=== PATIENT | male | born 1990 | race Caucasian/White ===

== ENCOUNTER 2017-10-16 05:10 | Observation (INO) | payer BC ==
[~2017-10-16] VITALS: Ht 180.3 cm; Wt 126.0 kg
[2017-10-16] VITALS (8 sets, daily range): BP systolic 103–131; BP diastolic 62–79; PULSE 55–75; TEMP 36.2–36.9; O2SAT 94–100; Ht 180.3 cm; Wt 126.0 kg
[2017-10-16] MEDS ORDERED: ONDANSETRON INJ 2 MG/ML 2 ML VIAL IV STA (05:28)
[2017-10-16] MEDS ORDERED: MoRPHine SULFATE 4 MG/ML 1 ML CARP\\VIAL IV ONE (05:30)
[2017-10-16 05:53] LABS: BASO % 0.3 %; BASO ABS # 0.02 K/uL (0-0.2); COMPLETE YES; EOS % 2.3 %; HEMATOCRIT 42.6 % (42-52); IG% 0.3 %; LYMPH % 33.4 %; LYMPH ABS # 2.65 K/uL (1.2-3.4); MEAN CELL VOLUME 87.3 fL (80-100); MEAN CORPUSCULAR HEMOGLOBIN 31.4 pg (25-34); MEAN CORPUSCULAR HGB CONC 35.9 g/dl (32-36); MEAN PLATELET VOLUME 8.8 fL (7.4-10.4); MONO % 7.4 %; NEUT % 56.3 %; PLATELET COUNT 222 K/uL (130-400); RED BLOOD COUNT 4.88 M/uL (4.7-6.1); WHITE BLOOD COUNT 7.93 K/uL (4.8-10.8)
[2017-10-16 06:10] LABS: BUN/CREATININE RATIO 15.3 (10-20); CALCIUM 9.2 mg/dl (8.5-10.1); POTASSIUM 3.6 mmol/L (3.5-5.1)
--- NOTE | 2017-10-16 06:45 | DIAGNOSTIC IMAGING REPORT ---
CT OF THE ABDOMEN AND PELVIS WITHOUT CONTRAST CLINICAL HISTORY: Right lower quadrant pain. COMPARISON STUDY: No previous studies for comparison. TECHNIQUE: Axial images of the abdomen and pelvis were obtained without IV contrast. Images were reviewed in the axial, sagittal, and coronal planes. A dose lowering technique was utilized adhering to the principles of ALARA. FINDINGS: No renal, ureteral or bladder calculi are present. Evaluation of the abdomen and pelvis is suboptimal on this unenhanced exam. The liver, spleen, adrenal glands and pancreas are normal. The appendix is mildly dilated, measuring 1 cm in caliber. There is mild periappendiceal infiltration and fluid. There is no free air or abscess. There is wall thickening of the appendix with submucosal fat deposition. Skeletal structures are unremarkable. There is no lymphadenopathy. IMPRESSION: Acute appendicitis. No free air or abscess. Electronically signed by: Jatinder Whiteside M.D. 10/16/2017 6:44 AM Dictated Date/Time: 10/16/2017 6:40 AM
[2017-10-16 07:01] LABS: URINE APPEARANCE CLEAR (CLEAR); URINE BILIRUBIN NEG (NEG); URINE COLOR YELLOW; URINE NITRITE NEG (NEG); URINE SPECIFIC GRAVITY 1.027 (1.000-1.030); UROBILINOGEN NEG (NEG); ZZUR CULT IF INDIC CLEAN CATCH NO
[2017-10-16 07:05] LABS: MANUAL MICROSCOPIC REQUIRED? NO; REVIEW REQ? NO
--- NOTE | 2017-10-16 08:04 | History and Physical ---
History & Physical Date & Time of Service: Oct 16, 2017 at 07:53 Chief Complaint: Right Side Pain Primary Care Physician: No Doctor, Assigned History of Present Illness Source: patient Jesus is a pleasant 27 year-old who presented to emergency department early this morning with complaint of abdominal pain that began two days ago. States the pain was generalized in the abdomen and has now radiated to the right lower side. Has never had pain like this before. Had associated diarrhea but no fever, chills, sweats, nausea, vomiting, chest pain, shortness of breath, difficulty breathing, constipation, blood in stools, difficulty urinating, or blood in urine. Has never had abdominal surgery before. Surgical history includes tonsillectomy, adenoidectomy, and wisdom teeth extraction. Denies of any significant medical history. CT scan of the abdomen and pelvis without contrast showed dilated appendix at 1 cm with periappendiceal inflammation no signs of free air or abscess formation. Labs showed no leukocytosis and vital signs stable. Past Medical/Surgical History Past Medical History: No significant past medical history Past Surgical History: 1. [place] teeth extraction 2. Tonsillectomy 3. 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) Allergies Coded Allergies: No Known Allergies (Unverified , 10/16/17) Home Medications No Active Prescriptions or Reported Meds Review of Systems Constitutional: No fever, No chills, No sweats Respiratory: No shortness of breath, No dyspnea on exertion Cardiovascular: No chest pain Abdomen: + pain, + diarrhea, No nausea, No vomiting, No constipation, No GI bleeding Genitourinary - Male: No hematuria, No dysuria, No urinary frequency, No urinary urgency Endocrine: No fatigue Hematologic / Lymphatic: No abnormal bleeding/bruising Integumentary: No rash Physical Exam Vital Signs Date Time Temp Pulse Resp B/P (MAP) Pulse Ox O2 Delivery O2 Flow Rate FiO2 10/16/17 06:53 75 18 120/74 98 Room Air 10/16/17 06:07 62 15 108/61 98 Room Air 10/16/17 05:13 36.6 70 20 129/73 97 Room Air General Appearance: WD/WN, no apparent distress Head: normocephalic, atraumatic Eyes: sclerae normal ENT: hearing grossly normal Neck: trachea midline Respiratory/Chest: lungs clear, normal breath sounds, no respiratory distress, no accessory muscle use Cardiovascular: regular rate, rhythm, no murmur Abdomen/GI: soft, no organomegaly, no pulsatile mass, + tenderness (RLQ on deep palpation, positive McBurneys point, no peritonitis or rigidity) Back: normal inspection Extremities/Musculoskelatal: normal inspection, no pedal edema Neurologic/Psych: alert, normal mood/affect, oriented x 3 Skin: normal color, warm/dry, no rash Diagnostics Laboratory Results Results Past 24 Hours Test 10/16/17 05:35 10/16/17 05:42 Range/Units White Blood Count 7.93 4.8-10.8 K/uL Red Blood Count 4.88 4.7-6.1 M/uL Hemoglobin 15.3 14.0-18.0 g/dL Hematocrit 42.6 42-52 % Mean Corpuscular Volume 87.3 80-100 fL Mean Corpuscular Hemoglobin 31.4 25-34 pg Mean Corpuscular Hemoglobin Concent 35.9 32-36 g/dl Platelet Count 222 130-400 K/uL Mean Platelet Volume 8.8 7.4-10.4 fL Neutrophils (%) (Auto) 56.3 % Lymphocytes (%) (Auto) 33.4 % Monocytes (%) (Auto) 7.4 % Eosinophils (%) (Auto) 2.3 % Basophils (%) (Auto) 0.3 % Neutrophils # (Auto) 4.47 1.4-6.5 K/uL Lymphocytes # (Auto) 2.65 1.2-3.4 K/uL Monocytes # (Auto) 0.59 0.11-0.59 K/uL Eosinophils # (Auto) 0.18 0-0.5 K/uL Basophils # (Auto) 0.02 0-0.2 K/uL RDW Standard Deviation 41.3 36.4-46.3 fL RDW Coefficient of Variation 12.9 11.5-14.5 % Immature Granulocyte % (Auto) 0.3 % Immature Granulocyte # (Auto) 0.02 0.00-0.02 K/uL Sodium Level 136 136-145 mmol/L Potassium Level 3.6 3.5-5.1 mmol/L Chloride Level 104 98-107 mmol/L Carbon Dioxide Level 26 21-32 mmol/L Anion Gap 6.0 3-11 mmol/L Blood Urea Nitrogen 15 7-18 mg/dl Creatinine 1.00 0.60-1.40 mg/dl Est Creatinine Clear Calc Drug Dose 148.6 ml/min Estimated GFR () 118.2 Estimated GFR (Non- 102.0 BUN/Creatinine Ratio 15.3 10-20 Random Glucose 96 70-99 mg/dl Calcium Level 9.2 8.5-10.1 mg/dl Total Bilirubin 0.6 0.2-1 mg/dl Aspartate Amino Transf (AST/SGOT) 12 15-37 U/L Alanine Aminotransferase (ALT/SGPT) 27 12-78 U/L Alkaline Phosphatase 66 45-117 U/L Total Protein 7.6 6.4-8.2 gm/dl Albumin 3.8 3.4-5.0 gm/dl Globulin 3.8 2.5-4.0 gm/dl Albumin/Globulin Ratio 1.0 0.9-2 Lipase 133 73-393 U/L Urine Color YELLOW Urine Appearance CLEAR CLEAR Urine pH 5.0 4.5-7.5 Urine Specific [place] 1.027 1.000-1.030 Urine Protein NEG NEG Urine Glucose (UA) NEG NEG Urine Ketones NEG NEG Urine Occult Blood NEG NEG Urine Nitrite NEG NEG Urine Bilirubin NEG NEG Urine Urobilinogen NEG NEG Urine Leukocyte Esterase NEG NEG Diagnostic Radiology CT OF THE ABDOMEN AND PELVIS WITHOUT CONTRAST CLINICAL HISTORY: Right lower quadrant pain. COMPARISON STUDY: No previous studies for comparison. TECHNIQUE: Axial images of the abdomen and pelvis were obtained without IV contrast. Images were reviewed in the axial, sagittal, and coronal planes. A dose lowering technique was utilized adhering to the principles of ALARA. FINDINGS: No renal, ureteral or bladder calculi are present. Evaluation of the abdomen and pelvis is suboptimal on this unenhanced exam. The liver, spleen, adrenal glands and pancreas are normal. The appendix is mildly dilated, measuring 1 cm in caliber. There is mild periappendiceal infiltration and fluid. There is no free air or abscess. There is wall thickening of the appendix with submucosal fat deposition. Skeletal structures are unremarkable. There is no lymphadenopathy. IMPRESSION: Acute appendicitis. No free air or abscess. Impression Assessment and Plan 27 year-old male who presented to emergency room with 2 day history of abdominal pain and diarrhea. CT scan showing acute appendicitis with dilated appendix measuring 1 cm and periappendiceal inflammation. No leukocytosis and vital signs stable. Examination is positive for RLQ tenderness on deep palpation with positive McBurney's point. No peritonitis or rigidity. Plan: Plan to take patient to operating room for laparoscopic appendectomy possible open. Discussed with patient and his the procedure and risks and informed consent will be obtained by Dr. Castañeda. Continue IV fluids and pain management prior to operating room Will receive 2 gms Cefoxitin for preop antibiotics Will be transferred to Med/Surg post operatively Dr. Castañeda has seen and examined patient, agrees with above findings and treatment plan.
[2017-10-16] MEDS ORDERED: SODIUM CHLORIDE 0.9% 1000ML 1,000 ML IV SCH (08:14)
[2017-10-16] MEDS ORDERED: ONDANSETRON INJ 2 MG/ML 2 ML VIAL IV PRN ×2 (08:15→12:30)
[2017-10-16] MEDS ORDERED: MoRPHine SULFATE 4 MG/ML 1 ML CARP\\VIAL IV PRN (08:15)
[2017-10-16] MEDS ORDERED: MoRPHine SULFATE 2 MG/ML CARP IV PRN ×2 (08:15)
[2017-10-16] MEDS ORDERED: EpHEDrine SULFATE INJ 50 MG/ML AMP ONE (10:21)
[2017-10-16] MEDS ORDERED: NEOSTIGMINE METHYLSULFATE 5 MG/5 ML SYR ONE (10:21)
[2017-10-16] MEDS ORDERED: LIDOCAINE HCL 2% 2 ML VIAL (20MG/ML) ONE (10:21)
[2017-10-16] MEDS ORDERED: GLYCOPYRROLATE INJ 0.2 MG/ML VIAL ONE (10:21)
[2017-10-16] MEDS ORDERED: PHENYLEPHRINE HCL INJ 10 MG/ML VIAL ONE (10:21)
[2017-10-16] MEDS ORDERED: DEXAMETHASONE SOD INJ 4 MG/ML VIAL ONE (10:21)
[2017-10-16] MEDS ORDERED: PROPOFOL IV EMULSION 10 MG/ML 20 ML VIAL IV ONE (10:21)
[2017-10-16] MEDS ORDERED: SUCCINYLCHOLINE CHLORIDE 20 MG/ML 10 ML VIAL IV ONE (10:21)
[2017-10-16] MEDS ORDERED: ONDANSETRON INJ 2 MG/ML 2 ML VIAL ONE (10:21)
[2017-10-16] MEDS ORDERED: BUPIVACAINE 0.5 % 5 MG/1 ML MPF 30ML VIAL ONE ×2 (10:22→10:59)
[2017-10-16] MEDS ORDERED: CEFAZOLIN SOD 1 GM VIAL ONE (10:23)
[2017-10-16] MEDS ORDERED: HEPARIN SOD (PORCINE) 1000 UNIT/ML 10 ML VIAL ONE (10:23)
[2017-10-16] MEDS ORDERED: MIDAZOLAM HCL 1 MG/ML 2ML VIAL ONE (10:24)
[2017-10-16] MEDS ORDERED: FENTANYL CITRATE INJ 50 MCG/1 ML 2 ML VIAL ONE ×2 (10:25→11:22)
[2017-10-16] MEDS ORDERED: IV FLUIDS COMPLETED PRN (10:45)
[2017-10-16] MEDS ORDERED: CEFAZOLIN SOD 2000MG/10 ML IV PUSH IV ONE (10:45)
[2017-10-16] MEDS ORDERED: NURSING VERBAL MED ORDER STA (10:46)
--- NOTE | 2017-10-16 11:59 | [facility] Post Operative Brief Note ---
Immediate Operative Summary Operative Date Oct 16, 2017. Pre-Operative Diagnosis Appendicitis Post-Operative Diagnosis Same Procedure(s) Performed Laparoscopic appendectomy Surgeon Walter Castañeda MD Saxophone Assembler Surgeon(s) Yarelis Hollingsworth PA-C Estimated Blood Loss 5 cc Findings See dictation Specimens Appendix Drains None Anesthesia General Complication(s) None Disposition Recovery Room / PACU
[2017-10-16] MEDS ORDERED: ATROPINE SULFATE 0.1 MG/ML 5ML SYR IV PRN (12:30)
[2017-10-16] MEDS ORDERED: LABETALOL HCL IV 5 MG/ML 20ML IV PRN (12:30)
[2017-10-16] MEDS ORDERED: EpHEDrine SULFATE INJ 50 MG/ML AMP IV PRN (12:30)
[2017-10-16] MEDS ORDERED: HYDROmorphone INJ 1 MG/ML SYR IV PRN (12:30)
[2017-10-16] MEDS ORDERED: PROMETHAZINE HCL INJ 12.5 MG in SODIUM CHLORIDE 0.9% 50ML 50 ML IV PRN (12:30)
[2017-10-16] MEDS ORDERED: HYDROmorphone INJ 1 MG/ML SYR ONE (12:32)
--- NOTE | 2017-10-16 13:08 | OPERATIVE REPORT ---
DATE OF OPERATION: 10/16/2017 PREOPERATIVE DIAGNOSIS: Acute appendicitis. POSTOPERATIVE DIAGNOSIS: Same. PROCEDURE: Laparoscopic appendectomy. SURGEON: Dr. Walter Castañeda. INSTALLATION MANAGER: Yarelis Joy PA-C FINDINGS: The distal two-thirds of the appendix was edematous, firm and hyperemic. The proximal one-third of the appendix including the base was normal. The cecum was normal, especially at the base of the appendix. The visible bowel appeared normal. There was no fluid seen in the abdomen. There was no evidence of perforation or abscess. TECHNIQUE: The patient was given a general anesthetic and the area was prepped and draped in the usual sterile fashion. Transverse incision was made below the umbilicus, carried down through the subcutaneous tissue to the fascia, which was grasped with 2 Magaly clamps and incised between. The peritoneum was identified, incised, and the introducer was placed bluntly. The abdomen was then insufflated to a pressure of 15 mmHg with carbon dioxide. A lower midline introducer was placed under direct vision through small skin incision. The patient was positioned in left side down in Trendelenburg. The appendix was easily identified extending off the inframedial side of the cecum and extending over towards the lateral abdominal wall. It was only very loosely attached there. The left lower quadrant introducer was then placed under direct vision through small skin incision. Traction was placed anteriorly on the cecum and the peritoneal attachments were divided using blunt and sharp dissection where appropriate until the appendix was completely elevated away from the floor and armando of the abdomen. I was then able to establish a plane between the mesoappendix and the appendix at the base and divided the mesoappendix with the Endo-LIA stapler. That allowed me then to confirm that I was identifying the base of the appendix at its attachment with the cecum. The appendix was then amputated using the Endo-LIA. The appendix was placed into an Endobag and brought out through the left lower quadrant introducer site. That introducer was replaced and the right lower quadrant was irrigated and irrigation was removed. There was a small amount of oozing from one of the dissection areas that was easily controlled with cautery. The right lower quadrant was further irrigated and irrigation removed. Any fluid that entered the right upper quadrant was removed. There was a small amount of irrigation in the pelvis that was removed. The staple lines were inspected again and there was no bleeding. The previous site of oozing was inspected and there was no bleeding. The gas was allowed to escape and the introducers were removed. The fascia of the umbilical introducer site was closed with interrupted 0 Vicryl and skin of all the incisions was closed with 4-0 Monocryl in either an interrupted or running subcuticular fashion. The skin was anesthetized with 0.5% Marcaine. The skin was cleansed, dried, benzoin placed, and Steri-Strips applied. Estimated blood loss was 5 mL. Sponge, needle and instrument counts were correct prior to closure. The patient tolerated the surgical procedure without complication and was transferred to recovery. I attest to the content of the Intraoperative Record and any orders documented therein. Any exception s are noted below.
--- NOTE | 2017-10-16 13:11 | Anesthesiology Progress Note ---
Anesthesia Post Op Note Date & Time Oct 16, 2017 at 13:10 Vital Signs Pain Intensity: 3 Vital Signs Past 12 Hours Date Time Temp Pulse Resp B/P (MAP) Pulse Ox O2 Delivery O2 Flow Rate FiO2 10/16/17 12:52 36.8 52 17 119/74 (89) 97 Oxymask 2 10/16/17 12:48 50 16 10/16/17 12:48 49 16 100 10/16/17 12:46 124/74 10/16/17 12:43 51 17 100 10/16/17 12:43 51 17 10/16/17 12:41 117/79 10/16/17 12:38 55 19 10/16/17 12:38 55 19 99 10/16/17 12:37 54 19 10/16/17 12:37 55 19 100 10/16/17 12:36 132/90 10/16/17 12:32 54 21 10/16/17 12:32 54 21 100 10/16/17 12:31 136/94 10/16/17 12:27 56 21 97 10/16/17 12:27 56 21 10/16/17 12:25 132/95 10/16/17 12:22 63 21 10/16/17 12:22 63 21 92 10/16/17 12:21 137/103 10/16/17 12:18 128/97 10/16/17 12:17 36.8 74 18 128/97 (114) 100 Oxymask 10 10/16/17 12:17 69 20 10/16/17 12:17 69 20 100 10/16/17 09:54 88 18 121/91 100 Nasal Cannula 10/16/17 08:48 63 18 124/78 99 Room Air 10/16/17 06:53 75 18 120/74 98 Room Air 10/16/17 06:07 62 15 108/61 98 Room Air 10/16/17 05:13 36.6 70 20 129/73 97 Room Air Notes Mental Status: alert / awake / arousable, participated in evaluation Pt Amnestic to Procedure: Yes Nausea / Vomiting: adequately controlled Pain: adequately controlled Airway Patency, RR, SpO2: stable & adequate BP & HR: stable & adequate Hydration State: stable & adequate Anesthetic Complications: no major complications apparent Pt doing well. VSS.
[2017-10-16] MEDS: OXYCODONE/ACETAMINOPHEN 5-325 TAB PO PRN ×2 (13:46→21:03)
[2017-10-16] MEDS: D5W AND 1/2NSS + 20MEQ KCL 1,000 ML IV SCH (15:35)
--- NOTE | 2017-10-16 15:51 | Discharge Instructions ---
Discharge Instructions Date of Service Oct 16, 2017. Admission Reason for Admission: Acute Appendicitis Discharge Discharge Diagnosis / Problem: same Discharge Goals Goal(s): Decrease discomfort, Improve function Activity Recommendations Activity Limitations: as noted below No heavy lifting over 20 pounds for 2 weeks No strenuous activity until cleared by surgeon No submerging incisions underwater for 2 weeks (no bathing, swimming, or hot tubs) No driving while taking narcotic pain medication or until you are pain free . Instructions / Follow-Up Instructions / Follow-Up You may shower in 24 hours, gently clean incision with soap and water and then pat dry Leave steri strips on incisions for 7 days and then remove You do not need to keep a dressing on incisions unless they are draining Walking and light activity is encouraged to prevent blood clots from forming You will be given narcotic pain medication as needed for pain. This medication may make you drowsy. Only take for moderate to severe pain. You may take extra strength Tylenol or Ibuprofen as needed for mild pain. If you are taking Percocet do not take Tylenol in between doses of Percocet as it already has Tylenol in it (substitute with Ibuprofen instead). Follow- up in surgical office in 2 weeks, please call [phone] to make an appointment Current Hospital Diet Patient's current hospital diet: Regular Diet Discharge Diet Recommended Diet: Regular Diet Procedures Procedures Performed: Laparoscopic appendectomy Pending Studies Studies pending at discharge: yes List of pending studies: appendix pathology will be reviewed at follow up visit Medical Emergencies . Who to Call and When: Medical Emergencies: If at any time you feel your situation is an emergency, please call 911 immediately. . Non-Emergent Contact Non-Emergency issues call your: Primary Care Provider, Surgeon Call Non-Emergent contact if: you have a fever, temperature is above 101, your pain is not controlled, your pain is worsening, your pain is unusual for you, wound has increased drainage, wound has increased redness, wound has increased pain . "Provider Documentation" section prepared by Yarelis Hollingsworth. . VTE Core Measure Inpt VTE Proph given/why not?: SCD's [place] Drug Monitoring Program Search Results: patient reviewed within database, no issues identified
[2017-10-16] MEDS ORDERED: OXYC-57 PO (15:52)
--- NOTE | 2017-10-16 23:06 | EMERGENCY ROOM VISIT NOTE ---
History First contact with patient: 05:19 Chief Complaint: FLANK PAIN Stated Complaint: ACUTE APPENDICITIS History of Present Illness The patient is a 27 year old male who presents to the Emergency Room with complaints of right side abdominal pain that is radiating into his right back. Patient states that he has slowly developed symptoms over the past 3 days. He has been eating, drinking, using the bathroom normal. No fever or chills. He does not have a history of abdominal surgery in the past. No change in diet or recent travel history. The patient considers himself usually healthy. His last meal was at 10 PM, roughly 7 hours ago. He rates his discomfort a dull 5/ 10. Review of Systems More than 10 systems were reviewed and otherwise negative with the exception of history of present illness. Past Medical/Surgical History Medical Problems: (1) Acute appendicitis Family History No pertinent family history Social History Smoking Status: Never Smoker Smokeless Tobacco Use: Yes Drug Use: none Marital Status: Occupation Status: employed Current/Historical Medications Scheduled PRN Oxycodone/Acetaminophen 5MG/325MG (Percocet 5MG/325MG), 1-2 TABLETS PO Q4H PRN for Pain Physical Exam Vital Signs Date Time Temp Pulse Resp B/P (MAP) Pulse Ox O2 Delivery O2 Flow Rate FiO2 10/16/17 06:53 75 18 120/74 98 Room Air 10/16/17 06:07 62 15 108/61 98 Room Air 10/16/17 05:13 36.6 70 20 129/73 97 Room Air Physical Exam VITALS: Vitals are noted on the nurse's note and reviewed by myself. Vital signs stable. GENERAL: Well-developed, well-nourished, white male, who is in no acute distress and resting comfortably. Patient is cooperative with the examination. HEAD: Normocephalic atraumatic. HEART: Regular rate and rhythm without murmurs gallops or rubs. LUNGS: Clear to auscultation bilaterally without wheezes, rales or rhonchi. No retractions or accessory muscle use. ABDOMEN: Positive normal bowel sounds x 4. Soft with right lower quadrant abdominal tenderness on palpation. No rebound or guarding. No CVA tenderness. MUSCULOSKELETAL: No muscle atrophy, erythema, or edema noted. Full range of motion without joint tenderness in all extremities. Medical Decision & Procedures ER Provider Diagnostic Interpretation: [~ rep ct add3]] CT OF THE ABDOMEN AND PELVIS WITHOUT CONTRAST CLINICAL HISTORY: Right lower quadrant pain. COMPARISON STUDY: No previous studies for comparison. TECHNIQUE: Axial images of the abdomen and pelvis were obtained without IV contrast. Images were reviewed in the axial, sagittal, and coronal planes. A dose lowering technique was utilized adhering to the principles of ALARA. FINDINGS: No renal, ureteral or bladder calculi are present. Evaluation of the abdomen and pelvis is suboptimal on this unenhanced exam. The liver, spleen, adrenal glands and pancreas are normal. The appendix is mildly dilated, measuring 1 cm in caliber. There is mild periappendiceal infiltration and fluid. There is no free air or abscess. There is wall thickening of the appendix with submucosal fat deposition. Skeletal structures are unremarkable. There is no lymphadenopathy. IMPRESSION: Acute appendicitis. No free air or abscess. Laboratory Results 10/16/17 05:35 Red Blood Count 4.88, Mean Corpuscular Volume 87.3, Mean Corpuscular Hemoglobin 31.4, Mean Corpuscular Hemoglobin Concent 35.9, Mean Platelet Volume 8.8, Neutrophils (%) (Auto) 56.3, Lymphocytes (%) (Auto) 33.4, Monocytes (%) (Auto) 7.4, Eosinophils (%) (Auto) 2.3, Basophils (%) (Auto) 0.3, Neutrophils # (Auto) 4.47, Lymphocytes # (Auto) 2.65, Monocytes # (Auto) 0.59, Eosinophils # (Auto) 0.18, Basophils # (Auto) 0.02 10/16/17 05:35 Test 10/16/17 05:35 10/16/17 05:42 White Blood Count 7.93 K/uL (4.8-10.8) Red Blood Count 4.88 M/uL (4.7-6.1) Hemoglobin 15.3 g/dL (14.0-18.0) Hematocrit 42.6 % (42-52) Mean Corpuscular Volume 87.3 fL (80-100) Mean Corpuscular Hemoglobin 31.4 pg (25-34) Mean Corpuscular Hemoglobin Concent 35.9 g/dl (32-36) Platelet Count 222 K/uL (130-400) Mean Platelet Volume 8.8 fL (7.4-10.4) Neutrophils (%) (Auto) 56.3 % Lymphocytes (%) (Auto) 33.4 % Monocytes (%) (Auto) 7.4 % Eosinophils (%) (Auto) 2.3 % Basophils (%) (Auto) 0.3 % Neutrophils # (Auto) 4.47 K/uL (1.4-6.5) Lymphocytes # (Auto) 2.65 K/uL (1.2-3.4) Monocytes # (Auto) 0.59 K/uL (0.11-0.59) Eosinophils # (Auto) 0.18 K/uL (0-0.5) Basophils # (Auto) 0.02 K/uL (0-0.2) RDW Standard Deviation 41.3 fL (36.4-46.3) RDW Coefficient of Variation 12.9 % (11.5-14.5) Immature Granulocyte % (Auto) 0.3 % Immature Granulocyte # (Auto) 0.02 K/uL (0.00-0.02) Anion Gap 6.0 mmol/L (3-11) Est Creatinine Clear Calc Drug Dose 148.6 ml/min Estimated GFR () 118.2 Estimated GFR (Non- 102.0 BUN/Creatinine Ratio 15.3 (10-20) Calcium Level 9.2 mg/dl (8.5-10.1) Total Bilirubin 0.6 mg/dl (0.2-1) Aspartate Amino Transf (AST/SGOT) 12 U/L (15-37) Alanine Aminotransferase (ALT/SGPT) 27 U/L (12-78) Alkaline Phosphatase 66 U/L (45-117) Total Protein 7.6 gm/dl (6.4-8.2) Albumin 3.8 gm/dl (3.4-5.0) Globulin 3.8 gm/dl (2.5-4.0) Albumin/Globulin Ratio 1.0 (0.9-2) Lipase 133 U/L (73-393) Urine Color YELLOW Urine Appearance CLEAR (CLEAR) Urine pH 5.0 (4.5-7.5) Urine Specific [place] 1.027 (1.000-1.030) Urine Protein NEG (NEG) Urine Glucose (UA) NEG (NEG) Urine Ketones NEG (NEG) Urine Occult Blood NEG (NEG) Urine Nitrite NEG (NEG) Urine Bilirubin NEG (NEG) Urine Urobilinogen NEG (NEG) Urine Leukocyte Esterase NEG (NEG) Medications Administered Medications (Trade) Dose Ordered Sig/Felicita Route Start Time Stop Time Status Last Admin Dose Admin Morphine Sulfate (MoRPHine SULFATE INJ) 4 mg NOW ONCE IV 10/16/17 05:30 10/16/17 05:32 DC 10/16/17 05:53 4 MG Ondansetron HCl (Zofran Inj) 4 mg NOW STAT IV 10/16/17 05:28 10/16/17 05:32 DC 10/16/17 05:53 4 MG ED Course Physical exam and history were performed. Nursing notes, EMR, and Medication List were personally reviewed. Patient appears to have right lower quadrant abdominal pain on exam. He has had symptoms for the past 2 days. IV access was established and labs were obtained. The patient was hydrated and medicated as above. CT scan of the abdomen and pelvis was performed. The patient does not have a significantly elevated white blood cell count, gross anemia, bandemia, or significant electrolyte imbalance. He did feel better after medication here in the department. His CT scan confirms acute appendicitis. I discussed the case with the on-call surgeon, who agreed to evaluate the patient here in the department. Please see their dictation for further patient course, plan, and disposition. The chart was completed utilizing [employer] Speech Voice Recognition Software. Grammatical errors, random word insertions, pronoun errors, and incomplete sentences are an occasional consequence of this system due to software limitations, ambient noise, and hardware issues. Any formal questions or concerns about the content, text, or information contained within the body of this dictation should be directly addressed to the provider for clarification. . Medical Decision Differential diagnosis: Etiologies such as appendicitis, diverticulitis, PUD, biliary pathology, UTI, pancreatitis, obstruction, mesenteric ischemia, aortic pathology, infections, inflammatory bowel disease, renal colic, as well as others were entertained. Impression Primary Impression: Acute appendicitis Departure Information Dispostion Admitted as an inpatient Condition GOOD Prescriptions Oxycodone/Acetaminophen 5MG/325MG (PERCOCET 5MG/325MG) Tab 1-2 TABLETS PO Q4H Y for Pain, #30 TAB PAIN Prov: Yarelis Hollingsworth .MITRA 10/16/17 Referrals No Doctor, Assigned (PCP) Forms HOME CARE DOCUMENTATION FORM, IMPORTANT VISIT INFORMATION Patient Instructions [facility]
[2017-10-17] MEDS: D5W AND 1/2NSS + 20MEQ KCL 1,000 ML IV SCH (01:48)
[2017-10-17 03:49] VITALS: BP 111/70; PULSE 64; TEMP 36.4; O2SAT 97
[2017-10-17 06:52] VITALS: BP 127/71; PULSE 64; TEMP 36.4; O2SAT 98
--- NOTE | 2017-10-17 08:06 | Surgery Progress Note ---
Surgery Progress Note Date of Service Oct 17, 2017. Subjective Post OP Day: 1 + feeling well, + diet (tolerated regular diet), No nausea, No vomiting Objective Vital Signs: Date Time Temp Pulse Resp B/P (MAP) Pulse Ox O2 Delivery O2 Flow Rate FiO2 10/17/17 07:25 Room Air 10/17/17 06:52 36.4 64 16 127/71 (89) 98 Room Air 10/17/17 03:49 36.4 64 16 111/70 (84) 97 Room Air 10/16/17 23:50 Room Air 10/16/17 23:43 36.9 75 16 119/77 (91) 95 Room Air 10/16/17 20:05 36.4 74 18 113/74 (87) 95 Room Air 10/16/17 16:18 36.4 59 18 110/71 (84) 94 Room Air 10/16/17 15:30 Room Air 10/16/17 15:27 36.2 61 18 110/71 (84) 98 Nasal Cannula 2.0 10/16/17 14:25 66 18 103/62 (76) 99 Nasal Cannula 2.0 10/16/17 13:55 36.5 55 18 131/75 (93) 96 Nasal Cannula 2.0 10/16/17 13:50 Nasal Cannula 2.0 10/16/17 13:25 Nasal Cannula 2.0 10/16/17 13:25 36.6 59 18 120/79 (93) 97 Nasal Cannula 2.0 10/16/17 13:25 Nasal Cannula 10/16/17 13:11 117/74 10/16/17 13:09 51 16 95 10/16/17 13:09 51 16 10/16/17 13:06 111/74 10/16/17 13:04 68 21 10/16/17 13:04 67 21 98 10/16/17 13:01 123/68 10/16/17 12:59 51 17 97 10/16/17 12:59 50 17 10/16/17 12:56 119/74 10/16/17 12:54 52 17 10/16/17 12:54 51 17 97 10/16/17 12:52 36.8 52 17 119/74 (89) 97 Oxymask 2 10/16/17 12:51 111/71 10/16/17 12:49 52 16 10/16/17 12:49 52 16 100 10/16/17 12:48 50 16 10/16/17 12:48 49 16 100 10/16/17 12:46 124/74 10/16/17 12:43 51 17 100 10/16/17 12:43 51 17 10/16/17 12:41 117/79 10/16/17 12:38 55 19 10/16/17 12:38 55 19 99 10/16/17 12:37 54 19 10/16/17 12:37 55 19 100 10/16/17 12:36 132/90 10/16/17 12:32 54 21 10/16/17 12:32 54 21 100 10/16/17 12:31 136/94 10/16/17 12:27 56 21 97 10/16/17 12:27 56 21 10/16/17 12:25 132/95 10/16/17 12:22 63 21 10/16/17 12:22 63 21 92 10/16/17 12:21 137/103 10/16/17 12:18 128/97 10/16/17 12:17 36.8 74 18 128/97 (114) 100 Oxymask 10 10/16/17 12:17 69 20 10/16/17 12:17 69 20 100 10/16/17 09:54 88 18 121/91 100 Nasal Cannula 10/16/17 08:48 63 18 124/78 99 Room Air Abdomen: normal bowel sounds, non distended, soft, + tenderness (minimal) Incision(s): clean, dry, intact, no erythema, no drainage Assessment & Plan S/P appendectomy Doing well can D/C to home Instructions discussed
[2017-10-17 09:45] VITALS: BP 127/71; PULSE 64; TEMP 36.4; O2SAT 98
--- NOTE | 2017-10-28 13:02 | Discharge Summary ---
Discharge Summary Dates Admission Date / Time: Oct 16, 2017 at 08:21 Discharge Date: Oct 17, 2017 Dispostion / Condition Discharge Disposition: Home Condition at Discharge: Good Principal Diagnosis (1) Acute appendicitis Problem List (1) No significant past medical history Consultations / Procedures Procedures: Laparoscopic Appendectomy Pending Studies / Follow-Up Pathology- appendix will be reviewed at follow up visit Medication Reconciliation New Medications: Oxycodone/Acetaminophen 5MG/325MG (Percocet 5MG/325MG) Tab 1-2 TABLETS PO Q4H PRN for Pain, #30 TAB PAIN Admission HPI Per the Admitting provider: Jesus is a pleasant 27 year-old who presented to emergency department early this morning with complaint of abdominal pain that began two days ago. States the pain was generalized in the abdomen and has now radiated to the right lower side. Has never had pain like this before. Had associated diarrhea but no fever, chills, sweats, nausea, vomiting, chest pain, shortness of breath, difficulty breathing, constipation, blood in stools, difficulty urinating, or blood in urine. Has never had abdominal surgery before. Surgical history includes tonsillectomy, adenoidectomy, and wisdom teeth extraction. Denies of any significant medical history. CT scan of the abdomen and pelvis without contrast showed dilated appendix at 1 cm with periappendiceal inflammation no signs of free air or abscess formation. Labs showed no leukocytosis and vital signs stable. Admission Exam Per the Admitting provider: General Appearance: WD/WN, no apparent distress Head: normocephalic, atraumatic Eyes: sclerae normal ENT: hearing grossly normal Neck: trachea midline Respiratory/Chest: lungs clear, normal breath sounds, no respiratory distress, no accessory muscle use Cardiovascular: regular rate, rhythm, no murmur Abdomen/GI: soft, no organomegaly, no pulsatile mass, + tenderness Back: normal inspection Extremities/Musculoskelatal: normal inspection, no pedal edema Neurologic/Psych: alert, normal mood/affect, oriented x 3 Skin: normal color, warm/dry, no rash Hospital Course (1) Acute appendicitis Patient was taken to operating room for laparoscopic possible open appendectomy. Patient tolerated procedure well without any complications. Was transferred to recovery room and then medical/surgical floor in stable condition. He was started on regular diet, IV fluids, PO Percocet as needed for pain and breakthrough IV Morphine as needed, IV Zofran as needed for nausea , activity as tolerated, and scds. Patient was evaluated in the morning of POD # 1 and was doing well. Afebrile overnight and tolerating diet. Pain controlled. Was discharged home on POD # 1 in stable condition. Hospital course was uneventful. Discharge Instructions as given to patient Copies To Primary Care Provider: No Doctor, Assigned.
== END 2017-10-17 10:20 | disposition home or self-care (01) ==
LOC: C.EDB 05:12 → C.MSN 08:21 → ENRESERV 10:00
PROVIDERS: ADMIT Surgery; ATTEND Surgery
DX: K35.80 Unspecified acute appendicitis (principal); K21.9 Gastro-esophageal reflux disease without esophagitis; E66.9 Obesity, unspecified; Z90.89 Acquired absence of other organs